=== PATIENT | female | born 1990 | race Two or more races ===

== ENCOUNTER 2018-06-18 12:15 | Inpatient (IN) | payer OTHER ==
[~2018-06-18] VITALS: Ht 167.6 cm; Wt 87.5 kg
[2018-07-07] MEDS ORDERED: PRENATAL 19 TA1 EACH PO (09:10)
[2018-07-07] MEDS ORDERED: FOLIC ACID1 MG PO (09:11)
== END 2018-07-09 15:33 | disposition home or self-care, planned readmission (81) | DRG 775 ==
LOC: LDR 07-07 06:57 → OB/GYN 07-07 13:47
PROC: 10E0XZZ Delivery of Products of Conception, External Approach (ICD-10-PCS; principal; 2018-07-07)
PROC: 0KQM0ZZ Repair Perineum Muscle, Open Approach (ICD-10-PCS; 2018-07-07)
PROC: 10907ZC Drainage of Amniotic Fluid, Therapeutic from Products of Conception, Via Natural or Artificial Opening (ICD-10-PCS; 2018-07-07)
PROC: 4A033R1 Measurement of Arterial Saturation, Peripheral, Percutaneous Approach (ICD-10-PCS; 2018-07-07)
PROC: 4A1HXCZ Monitoring of Products of Conception, Cardiac Rate, External Approach (ICD-10-PCS; 2018-07-07)
DX: O70.1 Second degree perineal laceration during delivery (principal); Z37.0 Single live birth; Z3A.39 39 weeks gestation of pregnancy

== ENCOUNTER 2020-11-13 12:15 | Inpatient (IN) | payer OTHER ==
[~2020-11-13] VITALS: Ht 167.6 cm; Wt 89.8 kg
[~2020-11-13 12:15] MED LIST: FOLIC ACID1 MG PO; PRENATAL 19 TA1 EACH PO
== END 2020-11-16 14:13 | disposition home or self-care (01) | DRG 805 ==
LOC: LDR 11-14 04:17 → OB/GYN 11-14 04:17
PROVIDERS: ADMIT Obstetrics & Gynecology; ATTEND Obstetrics & Gynecology
PROC: 10E0XZZ Delivery of Products of Conception, External Approach (ICD-10-PCS; principal; 2020-11-14)
PROC: 0KQM0ZZ Repair Perineum Muscle, Open Approach (ICD-10-PCS; 2020-11-14)
PROC: 10907ZC Drainage of Amniotic Fluid, Therapeutic from Products of Conception, Via Natural or Artificial Opening (ICD-10-PCS; 2020-11-14)
PROC: 3E033VJ Introduction of Other Hormone into Peripheral Vein, Percutaneous Approach (ICD-10-PCS; 2020-11-14)
PROC: 4A1HXFZ Monitoring of Products of Conception, Cardiac Rhythm, External Approach (ICD-10-PCS; 2020-11-14)
DX: O70.1 Second degree perineal laceration during delivery (principal); U07.1 COVID-19; Z37.0 Single live birth; O98.52 Other viral diseases complicating childbirth; Z3A.38 38 weeks gestation of pregnancy; Z20.822 Contact with and (suspected) exposure to COVID-19